=== PATIENT | female | born 1995 | race Caucasian/White ===

== ENCOUNTER 2018-01-28 18:08 | Emergency (ER) | payer BC, SELFPAY ==
[2018-01-28 18:13] VITALS: BP 128/80; PULSE 78; RESP 16; TEMP 36.9; O2SAT 97
--- NOTE | 2018-01-28 18:24 | ED.GENADUL ---
Disposition Clinical Impression: Dental infection Disposition: HOME Instructions: Dental Abscess (ED) Additional Instructions: These take antibiotic as prescribed. Be sure to complete the full course. Please take ibuprofen 600 mg by mouth every 6-8 hours as needed for pain for the next few days. Please follow-up with your dentist. Call tomorrow. Return to the emergency department immediately for any worsening or new concerning symptoms. Prescriptions: Penicillin V Potassium 500 mg PO QID PRN PRN #27 tablet PRN Reason: Referrals: Mikala Bernal [Primary Care Provider] - Medical Decision Making - Medical Decision Making 22-year-old female here with dental pain and infection. Concern for infection along gumline tooth #17 versus impacted wisdom tooth left lower. No indication for incision and drainage. Plan to treat with penicillin and have her follow-up with her dentist. Patient understands importance of timely follow-up and will be calling her dentist tomorrow. Patient is agreeable to periapical dental block. Patient provides verbal consent. History of Present Illness - General Chief complaint: DentalOral Stated complaint: INFECTION IN MOUTH Time Seen by Provider: 01/28/18 18:08 Source: patient, RN notes reviewed Mode of arrival: ambulatory Limitations: no limitations - History of Present Illness Initial comments: 22-year-old female presents with chief complaint of dental pain. Patient notes worsening of persistent left lower molar dental pain over the past 4 days. Pain is severe. Feels like an ache in her tooth. Constant. She notes associated swelling in the area of her face. No fever. Patient has had similar dental infection the past required antibiotics. - Related Data Methylphenidate HCl [Ritalin] 10 mg PO TID #40 tab-cap 12/13/17 Penicillin V Potassium 500 mg PO QID PRN PRN #27 tablet 01/28/18 Allergies Allergy/AdvReac Type Severity Reaction Status Date / Time sulfamethoxazole AdvReac Severe Skin Rash Unverified 01/28/18 18:24 [From Bactrim] trimethoprim [From Bactrim] AdvReac Severe Skin Rash Unverified 01/28/18 18:24 amitriptyline AdvReac suicidal Verified 01/28/18 18:24 ideation Review of Systems Constitutional: denies: fever ENT: as per HPI Past Medical History - Past Medical History Dental infection Surgical history: no surgical history - Social History Smoking status: never smoker General Exam - General Limitations: no limitations General appearance: alert, in no apparent distress - Eye Eye exam: Absent: scleral icterus, conjunctival injection - ENT ENT exam: Present: mucous membranes moist, other (Some redundant overlapping inflamed gum posterior left lower molar, tooth #17, tender gumline adjacent to tooth; no trismus; no appreciable facial swelling; posterior oropharynx without swelling or erythema, uvula midline) - Neck Neck exam: Absent: lymphadenopathy - Respiratory Respiratory exam: Present: normal lung sounds bilaterally - Cardiovascular Cardiovascular Exam: Present: regular rate, normal rhythm, normal heart sounds - Neurological Exam Neurological exam: Present: alert. Absent: altered - Psychiatric Psychiatric exam: Present: normal affect - Skin Skin exam: Present: warm, dry, intact Procedures - Nerve Block Consent Obtained: Verbal consent Time Out Performed: Yes Local Anesthetic Used: Marcaine 0.5% Side: left Intraoral Nerve Block: other (periapical) Procedure Successful: Yes Complications: none Patient Tolerated Procedure: well
[2018-01-28] MEDS: Penicillin V POTASSIUM 500 MG TAB PO ×2 (18:31)
[2018-01-28] MEDS: Benzocaine 20% 60 ML CAN TP (18:33)
[2018-01-28] MEDS: Bupivacaine 0.5% Pres-Free 30 ML VIAL IJ (18:33)
== END 2018-01-28 18:57 | disposition home or self-care (01) ==
PROVIDERS: Emergency Provider Student in an Organized Health Care Education/Training Program; PCP Family Medicine
DX: K04.7 Periapical abscess without sinus (principal); R68.84 Jaw pain; R22.0 Localized swelling, mass and lump, head
CPT/HCPCS: 64402; 99283

== ENCOUNTER 2020-02-16 16:02 | Emergency (ER) | payer BC, SELFPAY ==
[2020-02-16 16:09] VITALS: BP 147/87; PULSE 110; RESP 16; TEMP 36.6; O2SAT 98
--- NOTE | 2020-02-16 16:10 | ED.GENADUL_ITS ---
Discharge Plan Disposition Patient Disposition: HOME Condition: Fair Discharge Details Clinical Impression: Depression Primary Care Provider: Dory Cavazos ED Provider: Heather Payan Home Meds and New Rx's Prescriptions: Continued escitalopram oxalate [Lexapro] 10 mg Tablet 10 mg PO DAILY RF: 0 Discharge Instructions Instructions: Depression (ED) Additional Instructions: Continue usual medications Follow-up with mental health tomorrow as planned Return sooner for new or worsening symptoms Referrals: Dory Cavazos [Primary Care Provider] - Medical Decision Making Patient presents with symptoms of depression anxiety and suicidal ideation worsened since she stopped taking her Lexapro. She states she was started on that for the symptoms and they did improve after about 3 weeks of taking the medicine after being stable on it she decided she did not need it any longer and stopped taking it. Her symptoms now have returned and she is feeling suicidal with no specific plan she started retaking the Lexapro 4 days ago but symptoms have not improved. Medically she has been stable routine surveillance labs were obtained and are unremarkable urine drug screen is positive for cocaine, which she did not admit to. She is medically clear and ready for psychiatric evaluation mental health has been consulted and pending. She is given hydroxyzine 50 mg p.o. for her symptoms of anxiety. Mental health evaluation completed plan is to discharge with outpatient follow- up she was advised to return sooner for new or worsening symptoms Medical Records Medical records reviewed: Yes I reviewed the patient's medical records. Lab Data Lab results narrative: Laboratory Tests Range/Units 02/16/20 02/16/20 02/16/20 16:38 16:38 16:53 WBC (4.4-10.8) 10^3/uL RBC (3.93-5.22) 10^6/uL Hgb (11.2-15.7) g/dL Hct (36.0-46.0) % MCV (80-95) fL MCH (27.0-33.0) pg MCHC (32.0-36.0) % RDW (11.7-14.6) % Plt Count (130-400) 10^3/uL MPV (8.0-11.0) fL Immature Gran % Neutrophils % Lymphocytes % Monocytes % Eosinophils % Basophils % Nucleated RBC % % Absolute Neutrophils (1.2-6.7) 10^3/uL Absolute Lymphocytes (1.2-3.4) 10^3/uL Absolute Monocytes (0.1-0.8) 10^3/uL Absolute Eosinophils (0.0-0.7) 10^3/uL Absolute Basophils (0.0-0.2) 10^3/uL Sodium (136-145) mmol/L 139 Potassium (3.5-5.1) mmol/L 3.7 Chloride (98-107) mmol/L 103 Carbon Dioxide (21.0-32.0) mmol/L 25.0 Anion Gap (3-11) mmol/L 11.0 BUN (7-18) mg/dL 11 Creatinine (0.55-1.02) mg/dL 0.75 Estimated GFR/1.73 m2 (mL/min/1.73m2) >= 60.00 Glucose (74-106) mg/dL 95 Calcium (8.5-10.1) mg/dL 9.2 Total Bilirubin (0.2-1.0) mg/dL 0.8 AST (15-37) U/L 19 ALT (14-59) U/L 23 Alkaline Phosphatase (46-116) U/L 67 Total Protein (6.4-8.2) g/dL 7.9 Albumin (3.4-5.0) g/dL 4.3 TSH (0.36-3.74) uIU/mL 1.26 Urine Color (Yellow) Yellow Urine Clarity (Clear) Clear Urine pH (5-8) 7.5 Ur Specific [place] (1.005-1.025) 1.020 Urine Protein (Negative) mg/dL Negative Urine Ketones (Negative) mg/dL 15 H Urine Blood (Negative) Negative Urine Nitrite (Negative) Negative Urine Bilirubin (Negative) Negative Urine Urobilinogen (Up TO 0.2) EU/dL 0.2 Ur Leukocyte Esterase (Negative) Negative Urine Glucose (Negative) mg/dL Negative Salicylates (2.8-20.0) mg/dL Urine Opiates Screen (Negative) Negative Urine Methadone Screen (Negative) Negative Acetaminophen (10-30) ug/mL Ur Barbiturates Screen (Negative) Negative Ur Tricyclics Screen (Negative) Negative Ur Amphetamines Screen (Negative) Negative U Benzodiazepines Scrn (Negative) Negative Urine Cocaine Screen (Negative) Positive A Ur THC Screen (Negative) Negative Ethyl Alcohol (<3) mg/dL 3.7 Range/Units 02/16/20 02/16/20 16:53 16:53 WBC (4.4-10.8) 10^3/uL 9.70 RBC (3.93-5.22) 10^6/uL 4.52 Hgb (11.2-15.7) g/dL 14.5 Hct (36.0-46.0) % 42.8 MCV (80-95) fL 94.7 MCH (27.0-33.0) pg 32.1 MCHC (32.0-36.0) % 33.9 RDW (11.7-14.6) % 11.9 Plt Count (130-400) 10^3/uL 290 MPV (8.0-11.0) fL 9.0 Immature Gran % 0.3 Neutrophils % 77.6 Lymphocytes % 15.5 Monocytes % 6.1 Eosinophils % 0.1 Basophils % 0.4 Nucleated RBC % % 0 Absolute Neutrophils (1.2-6.7) 10^3/uL 7.53 H Absolute Lymphocytes (1.2-3.4) 10^3/uL 1.50 Absolute Monocytes (0.1-0.8) 10^3/uL 0.59 Absolute Eosinophils (0.0-0.7) 10^3/uL 0.01 Absolute Basophils (0.0-0.2) 10^3/uL 0.04 Sodium (136-145) mmol/L Potassium (3.5-5.1) mmol/L Chloride (98-107) mmol/L Carbon Dioxide (21.0-32.0) mmol/L Anion Gap (3-11) mmol/L BUN (7-18) mg/dL Creatinine (0.55-1.02) mg/dL Estimated GFR/1.73 m2 (mL/min/1.73m2) Glucose (74-106) mg/dL Calcium (8.5-10.1) mg/dL Total Bilirubin (0.2-1.0) mg/dL AST (15-37) U/L ALT (14-59) U/L Alkaline Phosphatase (46-116) U/L Total Protein (6.4-8.2) g/dL Albumin (3.4-5.0) g/dL TSH (0.36-3.74) uIU/mL Urine Color (Yellow) Urine Clarity (Clear) Urine pH (5-8) Ur Specific [place] (1.005-1.025) Urine Protein (Negative) mg/dL Urine Ketones (Negative) mg/dL Urine Blood (Negative) Urine Nitrite (Negative) Urine Bilirubin (Negative) Urine Urobilinogen (Up TO 0.2) EU/dL Ur Leukocyte Esterase (Negative) Urine Glucose (Negative) mg/dL Salicylates (2.8-20.0) mg/dL < 2.8 Urine Opiates Screen (Negative) Urine Methadone Screen (Negative) Acetaminophen (10-30) ug/mL < 2 Ur Barbiturates Screen (Negative) Ur Tricyclics Screen (Negative) Ur Amphetamines Screen (Negative) U Benzodiazepines Scrn (Negative) Urine Cocaine Screen (Negative) Ur THC Screen (Negative) Ethyl Alcohol (<3) mg/dL HPI General Mode of arrival: ambulatory . Date/Time Provider Initiated Documentation: 02/16/20 16:08 . Limitations to Documentation: no limitations . Information obtained by: patient . HPI Narrative: This is a 25-year-old female patient with a past medical history significant for depression who is being treated with escitalopram, which she stopped taking several weeks ago because she said her symptoms had improved she now is voicing depression anxiety and suicidal ideation. She denies any specific plan but states she feels she cannot go on this way. She noted that her symptoms were worsening so did resume taking her medication 4 days ago. She states that she feels that she cannot manage her symptoms and presented to the emergency department for evaluation. Medically she has been stable she denies ever any fevers chills shortness of breath or recent illness. She states she has nausea due to her anxiety and has had poor p.o. intake Related Data Home Medications Medication Instructions Recorded Confirmed escitalopram oxalate [Lexapro] 10 mg PO DAILY 02/16/20 02/16/20 Allergies Allergy/AdvReac Type Severity Reaction Status Date / Time sulfamethoxazole AdvReac Severe Skin Rash Unverified 02/16/20 16:15 [From Bactrim] trimethoprim [From Bactrim] AdvReac Severe Skin Rash Unverified 02/16/20 16:15 amitriptyline AdvReac suicidal Verified 02/16/20 16:15 ideation General Stated Complaint: PsychEval ANA ROSA: 2 Review of Systems All systems reviewed & are unremarkable except as noted in HPI and below [facility] Medical History (Updated 02/16/20 @ 20:07 by Heather Payan NP) Anxiety Social History Smoking/Tobacco Use Status: Never Alcohol Intake: current Alcohol Intake frequency: a few times a month Drug use: Occasionally Substance use type: marijuana Do you feel safe at home: Yes Do you feel safe in your relationship?: Yes Exam Const General: cooperative, comfortable and no acute distress Nutritional Appearance: overweight Orientation: alert, awake and oriented x3 HENMT Head: normal to inspection, normocephalic and atraumatic Mouth: oral mucosae normal Resp Effort & Inspection: normal respiratory effort Auscultation: clear to auscultation bilaterally Cardio Rate: regular rate Rhythm: regular rhythm GI Inspection: normal to inspection Palpation: soft Auscultation: normal bowel sounds Skin General skin exam: no rashes or lesions noted Neuro General: patient alert, patient awake and patient oriented x3 Cranial Nerves: CN's II-XI intact bilaterally Extrem General: normal to inspection and full ROM Psych Appearance: grossly normal Mental Status: mental status grossly normal Speech and Movement: speech and movement normal Mood: congruent mood Affect: blunted Attitude: cooperative Thought Process: normal Thought Content: phobias and suicidality Insight: fair Judgment: fair
[2020-02-16 16:53] LABS: Bilirubin Negative (Negative); Blood Negative (Negative); Clarity Clear (Clear); Glucose Negative (Negative); Ketones 15 mg/dL (Negative); Leukocyte Esterase Negative (Negative); Nitrite Negative (Negative); Urobilinogen 0.2 EU/dL (Up TO 0.2); pH 7.5 (5-8)
[2020-02-16 17:03] LABS: Abs Immature Grans 0.03 10^3/uL (0.0-0.06); Absolute Basophil Count 0.04 10^3/uL (0.0-0.2); Absolute Eosinophil Count 0.01 10^3/uL (0.0-0.7); Absolute Monocyte Count 0.59 10^3/uL (0.1-0.8); Absolute Neutrophil Count 7.53 10^3/uL (1.2-6.7); Basophils % 0.4; Eosinophils % 0.1; HCT 42.8 % (36.0-46.0); HGB 14.5 g/dL (11.2-15.7); Immature Grans % 0.3; Lymphocytes % 15.5; MCH 32.1 pg (27.0-33.0); MCHC 33.9 % (32.0-36.0); MCV 94.7 fL (80-95); Monocytes % 6.1; Neutrophils % 77.6; Nucleated RBC 0 %; Platelet Count 290 10^3/uL (130-400); RBC 4.52 10^6/uL (3.93-5.22); RDW 11.9 % (11.7-14.6); RDW-SD 41.4 fL
[2020-02-16 17:06] LABS: *AMPHETAMINES SCREEN URINE Negative (Negative); *BARBITURATES SCREEN URINE Negative (Negative); *BENZODIAZEPINES SCREEN URINE Negative (Negative); Cannabinoids THC Negative (Negative); Cocaine Screen,Urine POSITIVE (Negative); METHADONE URINE SCREEN Negative (Negative); OPIATES URINE SCREEN Negative (Negative)
[2020-02-16 17:10] LABS: Tricyclic Antidepressants Negative (Negative)
[2020-02-16 17:36] LABS: ALT 23 U/L (14-59); AST 19 U/L (15-37); Albumin 4.3 g/dL (3.4-5.0); Alkaline Phosphatase 67 U/L (46-116); BUN 11 mg/dL (7-18); Bilirubin, Total 0.8 mg/dL (0.2-1.0); CREATININE 0.75 mg/dL (0.55-1.02); Calcium 9.2 mg/dL (8.5-10.1); Chloride 103 mmol/L (98-107); ETHANOL BLOOD 3.7 mg/dL (<3); Glucose 95 mg/dL (74-106); Potassium 3.7 mmol/L (3.5-5.1); Sodium 139 mmol/L (136-145); TSH 1.26 uIU/mL (0.36-3.74); Total Protein 7.9 g/dL (6.4-8.2)
[2020-02-16 17:49] LABS: Salicylate < 2.8 mg/dL (2.8-20.0)
[2020-02-16 17:54] LABS: Acetaminophen < 2 ug/mL (10-30)
[2020-02-16] MEDS: hydrOXYzine HCL 50 MG TAB PO (18:15)
--- NOTE | 2020-02-16 19:11 | NUR.NOTE ---
Nursing Note: This nurse spoke with mental health via video conference who stated patient was ok to be discharged with outpatient referrals. This nurse asked mental health if there was a safety plan in place and mental health stated they would check in with patient tomorrow and that referrals would be placed. See [employer] noted for more info.
--- NOTE | 2020-02-16 19:43 | PDOC.MHCN ---
Date of service: 02/16/20 Time of Service: 19:43 Mental Health Crisis Note Presenting Issue How did you arrive at the ED and why did you come: Client arrived at ED for anxiety attack, as patient described it. Client sates that she has been having really bad anxiety the past 4 days which is effecting her day to day activities. Precipitating Factors Client states that she sometimes has SI, but denies a plan and states that she would never hurt herself. Client denies HI. Disposition BEHAVIOR: Client is sitting on hospital bed in standard hospital paper attire when mental health clinician arrived via zoom. Client is cooperative with mental health clinician and answers all questions that are asked of her. Client asks appropriate questions of mental health clinician throughout the assessment. EYE CONTACT: Clients eye contact is distorted making eye contact with mental health clinician at times and other times looking around the room. MOOD: Client appears to be depressed and is tearful at times when interacting with mental health clinician during assessment. AFFECT: Flat Affect APPETITE: Client states that she has not been eating adequately. Client states that she had 2 pieces of pizza for lunch yesterday, but has not eaten anything since then. SLEEP(trouble falling/staying asleep: Client states that she cannot sleep or when she does sleep she has very vivid dreams that wake her up out of a sleep. These dreams are fears, but not realistic client states. Plan [facility] intake paperwork complete. Client went home on a safety plan with a check-in phone call tomorrow. Mental health clinician will do in house referrals for client. Signature Clinician's Name/Title: Zarina Sewell, [facility] Emergency Mental Health Clinician.
== END 2020-02-16 20:20 | disposition home or self-care (01) ==
PROVIDERS: Emergency Provider Nurse Practitioner Acute Care; PCP Nurse Practitioner Family
DX: F41.8 Other specified anxiety disorders (principal); R45.851 Suicidal ideations; Z91.128 Patient's intentional underdosing of medication regimen for other reason; T43.226A Underdosing of selective serotonin reuptake inhibitors, initial encounter; F14.10 Cocaine abuse, uncomplicated
CPT/HCPCS: 36415; 80053; 80307; 81025; 99283; 80320; 80329; 81003; 84443; 85025; J3490

== ENCOUNTER 2020-06-13 23:48 | Emergency (ER) | payer BC, SELFPAY ==
[2020-06-13 23:50] VITALS: BP 143/96; PULSE 121; RESP 18; TEMP 36.6; O2SAT 97
--- NOTE | 2020-06-13 23:54 | ED.GENADUL_ITS ---
Discharge Plan Disposition Patient Disposition: HOME Condition: Good Discharge Details Clinical Impression: Laceration of scalp, Alcohol intoxication Primary Care Provider: Dory Cavazos ED Provider: Jeyson Fine Meds and New Rx's Prescriptions: Continued escitalopram oxalate [Lexapro] 10 mg Tablet 10 mg PO DAILY RF: 0 alprazolam [Xanax] 0.5 mg Tablet 0.5 mg PO DAILY PRNRF: 0 Discharge Instructions Instructions: Head Injury (ED), Alcohol Intoxication (ED), Head Laceration (ED) Additional Instructions: CT scan of your head and cervical spine are negative for traumatic injury. Tetanus was updated tonight. Sam will need to come out in 10 days. You may return here for staple removal. Be careful when washing your hair. Watch for signs of infection. Return to ED if any problems. Referrals: [facility] [Provider Group] Medical Decision Making Patient with scalp laceration status post fall at home while intoxicated. Awake and alert here but quite intoxicated. GCS of 15. Nonfocal. Very anxious. No complaint other than scalp laceration. Wound irrigated and found to be quite deep. Lidocaine with epi given for anesthesia and hemostasis. Galea noted to have small laceration. This was closed with one 5-0 Vicryl suture. Scalp then closed with 4 sam. Due to the intoxication elected to scan the patient's head and cervical spine before releasing into the care of her mother. CT scan of the head and cervical spine negative for traumatic injury. Tetanus updated. Patient discharged into the care of her mother who will watch her for the rest of tonight. Return to ED in 10 days for staple removal. Return sooner if any evidence of infection or other problems. HPI General Mode of arrival: ambulatory . Date/Time Provider Initiated Documentation: 06/13/20 23:51 . Limitations to Documentation: no limitations . Information obtained by: patient and RN notes reviewed . HPI Narrative: Patient is brought into ED by her mother after patient fell while drinking alcohol tonight. She is pretty intoxicated. She fell going up her stairs into her house. She is unsure whether she had loss of consciousness or not. Sounds like she just fell, noticed bleeding and immediately called her mother. She was ambulatory in on her own. She has history of anxiety and is very anxious currently. Is not complaining of pain anywhere other than her head. Did not fall down a flight of stairs. More like fell going up the stairs and struck her head on something. Related Data Home Medications Medication Instructions Recorded Confirmed escitalopram oxalate [Lexapro] 10 mg PO DAILY 02/16/20 06/14/20 alprazolam [Xanax] 0.5 mg PO DAILY PRN 06/14/20 06/14/20 Allergies Allergy/AdvReac Type Severity Reaction Status Date / Time sulfamethoxazole AdvReac Severe Skin Rash Unverified 06/14/20 00:51 [From Bactrim] trimethoprim [From Bactrim] AdvReac Severe Skin Rash Unverified 06/14/20 00:51 amitriptyline AdvReac suicidal Verified 06/14/20 00:51 ideation General ANA ROSA: 2 Review of Systems Unobtainable due to mental status (Intoxicated) [facility] Medical History Anxiety Surgical History No significant past surgical history Social History Smoking/Tobacco Use Status: Never Smoking risk assessment performed?: Yes Alcohol Intake: current Alcohol Intake frequency: a few times a week Alcohol type: hard liquor Drug use: Occasionally Substance use type: marijuana Do you feel safe at home: Yes Do you feel safe in your relationship?: Yes Exam Narrative Exam Narrative: Const: WDWN female in NAD. HEENT: NC. 2cm scalp lac to left parietal area. Normal facial exam. Eyes: PERRL and EOMI. Normal conjunctiva and sclera. Neck: Supple. Trachea midline. Lungs: Normal respiratory effort. Lungs are clear. Cor: RRR without murmur/gallop. Good radial pulses. GI: Soft. NT/ND. Neuro: A+O x 3. Intoxicated, slurred speech, unsteady gait. Cranial nerves II - XII grossly intact. No gross motor or sensory deficit. Ext: No deformity or tenderness. Skin: Warm and dry. Procedures Laceration Laceration 1: Site: scalp Side (If applicable): left Size (cm): 2 Description: linear Local Anesthetic: Lidocaine 1% and with Epi Amount of anesthesia used (mL): 6 Pre-repair: wound explored and irrigated extensively Skin layer closed with: other (sam) Muscle layer closed with: vicryl Size: 5-0 Number of sutures: 1 Technique: simple, interrupted
--- NOTE | 2020-06-14 00:30 | DI.CT_ITS ---
EXAM: CT HEAD CERVICAL SPINE WO CLINICAL HISTORY: trauma. TECHNIQUE: Imaging Protocol: Axial computed tomography images with coronal and sagittal reformatted images were created and reviewed COMPARISON: No exams were available for comparison FINDINGS: Head CT Ventricles and Extra axial spaces: Normal in size and morphology for the patient's age. Hemorrhage: None. Cerebral parenchyma: Normal. Midline shift: None. Brainstem/Cerebellum: Normal. Calvarium: Normal. Visualized Paranasal sinuses/Mastoids: Clear. Soft tissues: Skin mohit are noted over an area of left frontal parietal scalp hematoma. Cervical Spine CT BONES: Vertebral body heights are maintained. Alignment is normal. There is no evidence of acute frac ture. . SOFT TISSUES: No paraspinal hematoma. The airway appears intact. No pneumothorax is seen at the lung apices. IMPRESSION: Head CT: Scalp hematoma. No acute intracranial abnormality. C-spine CT: Within normal limits.. RADIATION DOSE DELIVERED: LINK-TO-SR Total DLP DATA REPOSITORY: All CT scans at this facility are submitted to the National Radiology Data Registry (NRDR) Dose Index Registry (DIR) with the [employer] (ACR). RADIATION OPTIMIZATION: All CT scans at this facility use at least one of these dose optimization te chniques: automated exposure control; mA and/or kV adjustment per patient size (includes targeted exa ms where dose is matched to clinical indication); or iterative reconstruction.
--- NOTE | 2020-06-14 01:20 | DI.VRAD_ITS ---
PROCEDURE INFORMATION: Exam: CT Head Without Contrast Exam date and time: 06/14/2020 12:44 AM Age: 25 years old Clinical indication: Injury or trauma; Fall; Blunt trauma (contusions or hematomas) TECHNIQUE: Imaging protocol: Computed tomography of the head without contrast. COMPARISON: No relevant prior studies available. FINDINGS: Brain: Cerebral sulci show bilateral symmetry with no supratentorial mass or mass effect detected. Brainstem and cerebellum are normal in appearance. There is no evidence of acute intracranial hemorrhage. Cerebral ventricles: Ventricular and cisternal spaces are normal in size and configuration and there is no midline shift or hydrocephalus seen. Bones/joints: Bony calvarium and skull base are intact and no acute fractures are detected. Paranasal sinuses: Paranasal sinuses are clear throughout and their bony margins are intact at the levels imaged. Mastoid air cells: Normally pneumatized and clear bilaterally. Soft tissues: Small left frontoparietal scalp hematoma is identified with overlying skin mohit seen related to laceration closure and no subjacent fracture detected. IMPRESSION: 1. No evidence of intracranial hemorrhage or other acute intracranial process. 2. Left frontoparietal scalp hematoma and laceration closure as above. PROCEDURE INFORMATION: Exam: CT Cervical Spine Without Contrast Exam date and time: 06/14/2020 12:44 AM Age: 25 years old Clinical indication: Injury or trauma; Fall; Blunt trauma (contusions or hematomas) TECHNIQUE: Imaging protocol: Computed tomography images of the cervical spine without contrast. COMPARISON: No relevant prior studies available. FINDINGS: Bones/joints: Craniocervical and atlantoaxial articulations are preserved and the odontoid process appears intact. Vertebral body height is preserved throughout cervical levels with no acute fractures or dislocations detected. Posterior elements appear grossly intact throughout cervical levels. Discs/Spinal canal/Neural foramina: No significant disc bulges or protrusions seen. No severe spinal canal stenosis. No significant bony foraminal narrowing. Lungs: No pneumothorax or consolidation detected at the lung apices. Soft tissues: Unremarkable. IMPRESSION: No acute cervical fracture detected. Dictated and Authenticated by: Duglas Ferraro MD. Ordering:EDY Benítez MD
== END 2020-06-14 02:00 | disposition home or self-care (01) ==
PROVIDERS: Emergency Provider Emergency Medicine; PCP Nurse Practitioner Family
DX: S01.01XA Laceration without foreign body of scalp, initial encounter (principal); F10.120 Alcohol abuse with intoxication, uncomplicated; W10.8XXA Fall (on) (from) other stairs and steps, initial encounter
CPT/HCPCS: 12031; 81025; 90471; 70450; 72125

== ENCOUNTER 2020-06-24 07:14 | Emergency (ER) | payer BC, SELFPAY ==
[2020-06-24 07:18] VITALS: BP 130/78; PULSE 81; RESP 16; TEMP 36.8; O2SAT 98
--- NOTE | 2020-06-24 07:21 | W.ED.GENAD ---
Discharge Plan Disposition Patient Disposition: HOME Condition: Stable Discharge Details Clinical Impression: Encounter for removal of mohit Primary Care Provider: Dory Cavazos ED Provider: Chevy Brian Home Meds and New Rx's Prescriptions: Continued escitalopram oxalate [Lexapro] 10 mg Tablet 10 mg PO DAILY RF: 0 alprazolam [Xanax] 0.5 mg Tablet 0.5 mg PO DAILY PRNRF: 0 Discharge Instructions Additional Instructions: if you have worsening pain, fevers or yellow/white discharge from the wound return to the emergency department Medical Decision Making Pt seen on 06/23 after sustaining a laceration to the left scalp while intoxicated and had 4 mohit palced and is here for removal. Denies any symptoms. Wound on the left parietal scalp is well healed, no erythema swelling tenderness or discharge. Removed the 4 mohit without complications, will d/c home Differential Diagnosis Differential Diagnosis: laceration, staple removal HPI General Mode of arrival: ambulatory. Date/Time Provider Initiated Documentation: 06/24/20 07:15. Limitations to Documentation: no limitations. Information obtained by: patient. History of Present Illness 25 year old F presents to the emergency department with the chief complaint of staple removal, described as mild, Patient started experiencing this week(s) (1) and it has been constant. No relieving factors improve symptom(s), No exacerbating factors reported . Patient notes no other symptoms.. Related Data Home Medications Medication Instructions Recorded Confirmed escitalopram oxalate [Lexapro] 10 mg PO DAILY 02/16/20 06/24/20 alprazolam [Xanax] 0.5 mg PO DAILY PRN 06/14/20 06/24/20 Allergies Allergy/AdvReac Type Severity Reaction Status Date / Time sulfamethoxazole AdvReac Severe Skin Rash Unverified 06/24/20 07:21 [From Bactrim] trimethoprim [From Bactrim] AdvReac Severe Skin Rash Unverified 06/24/20 07:21 amitriptyline AdvReac suicidal Verified 06/24/20 07:21 ideation General ANA ROSA: 2 Review of Systems All systems reviewed & are unremarkable except as noted in HPI and below Constitutional Constitutional: Denies chills, Denies fever(s) and Denies weakness Cardiovascular Cardiovascular: Denies chest pain and Denies dyspnea Respiratory Respiratory: Denies dyspnea Gastrointestinal Gastrointestinal: Denies abdominal pain, Denies nausea and Denies vomiting Integumentary/Breasts Skin/Breast: Denies rash Neurologic Neurologic: Denies weakness [facility] Medical History Anxiety Surgical History No significant past surgical history Social History Smoking/Tobacco Use Status: Never Smoking risk assessment performed?: Yes Alcohol Intake: current Alcohol Intake frequency: a few times a week Alcohol type: hard liquor Drug use: Occasionally Substance use type: marijuana Do you feel safe at home: Yes Do you feel safe in your relationship?: Yes Exam Const General: no acute distress Orientation: alert HENMT Head: no palpable skull fracture Ears: external ears normal General nose exam: external nose normal Mouth: moist mucous membranes Eyes General: appearance normal, both eyes and all related structures Neck Neck: normal visual inspection Resp Effort & Inspection: normal respiratory effort and able to speak in complete sentences Cardio Rate: regular rate Skin General skin exam: no rashes or lesions noted Neuro General: patient alert and patient oriented x3 Extrem General: normal to inspection Psych Mental Status: mental status grossly normal
== END 2020-06-24 07:28 | disposition home or self-care (01) ==
LOC: ER 07:33
PROVIDERS: Emergency Provider Emergency Medicine; PCP Nurse Practitioner Family
DX: S01.01XD Laceration without foreign body of scalp, subsequent encounter (principal); W10.8XXD Fall (on) (from) other stairs and steps, subsequent encounter; Z48.02 Encounter for removal of sutures

== ENCOUNTER 2020-12-23 21:29 | Emergency (ER) | payer BC, SELFPAY ==
[2020-12-23] VITALS (24 sets, daily range): BP systolic 91–119; BP diastolic 58–83; PULSE 90–122; RESP 15–30; TEMP 37.4; O2SAT 84–98
--- NOTE | 2020-12-23 21:58 | ED.GENADUL_ITS ---
Discharge Plan Disposition Patient Disposition: HOME Condition: Stable Discharge Details Clinical Impression: ETOH abuse, Benzodiazepine abuse Primary Care Provider: Dory Cavazos ED Provider: Jonny Lee Home Meds and New Rx's Prescriptions: Continued escitalopram oxalate [Lexapro] 10 mg Tablet 10 mg PO DAILY RF: 0 zaleplon 10 mg capsule 10 mg PO HS RF: 0 alprazolam [Xanax] 0.5 mg Tablet 0.5 mg PO DAILY PRNRF: 0 Discharge Instructions Additional Instructions: Please avoid using alcohol and benzodiazepines together. If you notice any worsening of your symptoms, or any new symptoms such as vomiting, diarrhea, fever, chills, shortness of breath, chest pain, numbness, weakness, or fainting , please return immediately to the emergency department for reevaluation. Please follow up with your primary care provider as soon as possible for reassessment and reevaluation. As always, it was a pleasure participating in your medical care today. Referrals: Dory Cavazos [Primary Care Provider] - Discharge Data Discharge Date/Time-TO BE ENTERED AT DEPARTURE: 12/24/20 00:12 Medical Decision Making <Nato Kelly MD - Last Filed: 12/27/20 16:54> 2215? 25-year-old female here approximately 1 hour after supposedly ingesting 8 mg of Xanax and consuming alcoholic beverages. History and review of systems unreliable at this point given the altered mental status presumed secondary to intoxication. Airway is intact. No suicidal ideation. We will obtain medical screening labs including LFTs, salicylates and acetaminophen level as well as urine drug screen. Patient will need to be observed for a few hours until sober and ensure no respiratory depression. <Jonny Lee DO - Last Filed: 12/24/20 00:29> Case is signed out to me by my colleague Dr. Nato Kelly, please refer to his HPI, physical exam assessment and plan. At the time of signout we are pending reassessment for improved mental status. Reassess the patient at 12:12 and the patient is doing much better. She is awake, she is alert, she feels well and she is notably adamant about going home. She has demonstrated no signs of hypoxemia or respiratory distress whatsoever. She denies any homicidal or suicidal ideation. Mother is at bedside. I had a long discussion with both the mother and the patient, and discussed the importance of continued close monitoring. I gave the option of continued monitoring here in the ED and made clear that this would be the ideal path forward, however after long discussion regarding the risks and benefits, the patient and the mother have elected to go home understanding the potential risks benefits and consequences, the worst of which being less of life. However clinically at this time the patient appears notably well, and is demonstrating significant improvement compared to the initial assessment upon her arrival. Discussed the importance of continued bedside observation at home. Mother feels very comfortable with this. I have extensively reviewed the treatment plan and discharge instructions with the patient and their family. I have addressed all patient concerns at this time. The patient and family was made aware of what symptoms to monitor for that would warrant a return to the emergency department. Discussed the plan with the patient and family, they demonstrate verbal understanding and agreement with our assessment and plan at this time. The documentation in this chart was dictated using [employer] dictation software. Please excuse any dictation errors. HPI <Nato Kelly MD - Last Filed: 12/27/20 16:54> General Mode of arrival: ambulatory . Date/Time Provider Initiated Documentation: 12/23/20 21:43 . Limitations to Documentation: no limitations . Information obtained by: patient and family (mother) . HPI Narrative: 25-year-old female with history of anxiety disorder, presents with chief complaint substance use. Patient states she was consuming alcohol today and decided she wanted to go to sleep and took #4 Xanax 2 mg tablets approximately 1 hour prior to arrival. Patient denies suicidal ideation. She notes that this was not a suicidal attempt. She has had a she notes she has had a lot of anxiety recently and just wanted to get some sleep. She states that today she started to consume alcoholic beverages around 3-4 PM. States that she has consumed approximately 4 vodka mixed drinks. Patient denies other ingestion. Patient states she realized she probably took too much Xanax and was concerned that this might cause her harm and she contacted her mother who brought her here to the emergency department. Mom is here with the patient and does not have concerns for suicidality. Related Data Home Medications Medication Instructions Recorded Confirmed escitalopram oxalate [Lexapro] 10 mg PO DAILY 02/16/20 12/23/20 alprazolam [Xanax] 0.5 mg PO DAILY PRN 06/14/20 12/23/20 zaleplon 10 mg PO HS 12/23/20 12/23/20 Allergies Allergy/AdvReac Type Severity Reaction Status Date / Time sulfamethoxazole AdvReac Severe Skin Rash Unverified 12/23/20 21:40 [From Bactrim] trimethoprim [From Bactrim] AdvReac Severe Skin Rash Unverified 12/23/20 21:40 amitriptyline AdvReac suicidal Verified 12/23/20 21:40 ideation General Stated Complaint: OD/Poison ANA ROSA: 3 Review of Systems <Nato Kelly MD - Last Filed: 12/27/20 16:54> All systems reviewed & are unremarkable except as noted in HPI and below Constitutional Constitutional: Denies fever(s) Gastrointestinal Gastrointestinal: Denies vomiting Psychiatric Psychiatric: Reports anxiety and Denies suicidal ideation PFSH <Nato Kelly MD - Last Filed: 12/27/20 16:54> Medical History Anxiety Surgical History No significant past surgical history Social History Smoking/Tobacco Use Status: Never Smoking risk assessment performed?: Yes Alcohol Intake: current Alcohol Intake frequency: a few times a week Alcohol type: hard liquor Drug use: Occasionally Substance use type: marijuana Do you feel safe at home: Yes Do you feel safe in your relationship?: Yes Exam <Nato Kelly MD - Last Filed: 12/27/20 16:54> Const General: cooperative and no acute distress HENMT Head: atraumatic Mouth: moist mucous membranes Eyes Conjunctivae: normal conjunctivae Sclera: normal sclerae Neck Neck: trachea midline and supple Resp Auscultation: clear to auscultation bilaterally, no rales, no rhonchi and no wheezes Cardio Rate: tachycardic Rhythm: regular rhythm GI Palpation: soft, not firm, no guarding, no masses, not rigid and nontender Skin General skin exam: no rashes or lesions noted Neuro General: patient alert, patient awake, patient oriented x3 and tone normal Extrem General: no edema Psych Appearance: grossly normal Mental Status: mental status grossly normal Speech and Movement: slurred speech Attitude: cooperative Thought Content: suicidality Course <Nato Kelly MD - Last Filed: 12/27/20 16:54> Vital Signs Vital signs: Vital Signs Temperature 37.4 C 12/23/20 21:33 Pulse 122 H 12/23/20 21:33 Respiratory Rate 16 12/23/20 21:33 Blood Pressure 115/72 12/23/20 21:33 Pulse Oximetry 98 12/23/20 21:33 Temperature 37.4 C 12/23/20 21:33 Temperature Source Skin 12/23/20 21:33 Pulse 122 H 12/23/20 21:33 Respiratory Rate 18 12/23/20 21:41 Respiratory Effort Non-Labored 12/23/20 21:41 Respiratory Depth Normal 12/23/20 21:41 Respiratory Pattern Normal 12/23/20 21:41 Blood Pressure 115/72 12/23/20 21:33 Blood Pressure Position Sitting 12/23/20 21:33 Pulse Oximetry 98 12/23/20 21:33 Oxygen Delivery Method Room Air 12/23/20 21:33 Oxygen Flow Rate 0 12/23/20 21:33 Pain Level 0 12/23/20 21:33 Sign Out <Nato Kelly MD - Last Filed: 12/27/20 16:54> Sign Out Data: Sign Out Comment: reassess for clinical sobriety and benzo effects Last updated by Nato Kelly MD at 12/23/20 23:09
[2020-12-23 22:12] LABS: Abs Immature Grans 0.02 10^3/uL (0.0-0.06); Absolute Basophil Count 0.04 10^3/uL (0.0-0.2); Absolute Eosinophil Count 0.01 10^3/uL (0.0-0.7); Absolute Lymphocyte Count 2.87 10^3/uL (1.2-3.4); Absolute Monocyte Count 0.54 10^3/uL (0.1-0.8); Basophils % 0.6; Eosinophils % 0.1; HGB 15.6 g/dL (11.2-15.7); Immature Grans % 0.3; Lymphocytes % 41.7; MCH 30.6 pg (27.0-33.0); MCHC 33.9 % (32.0-36.0); MCV 90.4 fL (80-95); MPV 9.1 fL (8.0-11.0); Monocytes % 7.8; Neutrophils % 49.5; Nucleated RBC 0 %; Platelet Count 325 10^3/uL (130-400); RBC 5.09 10^6/uL (3.93-5.22); RDW 12.3 % (11.7-14.6); RDW-SD 40.6 fL; WBC 6.88 10^3/uL (4.4-10.8)
[2020-12-23] MEDS: Lactated Ringers 1,000 ML 1000 ML IV (22:15)
[2020-12-23 22:28] LABS: ALT 27 U/L (14-59); AST 17 U/L (15-37); Albumin 4.4 g/dL (3.4-5.0); Alkaline Phosphatase 68 U/L (46-116); Anion Gap 8.8 mmol/L (3-11); BUN 11 mg/dL (7-18); Bilirubin, Total 0.3 mg/dL (0.2-1.0); CO2 27.2 mmol/L (21.0-32.0); CREATININE 0.9 mg/dL (0.55-1.02); Calcium 9.1 mg/dL (8.5-10.1); Chloride 108 mmol/L (98-107); ETHANOL BLOOD 243.1 mg/dL (<3); Glucose 94 mg/dL (74-106); Potassium 3.8 mmol/L (3.5-5.1); Sodium 144 mmol/L (136-145); Total Protein 8.4 g/dL (6.4-8.2)
[2020-12-23 22:32] LABS: Salicylate < 2.8 mg/dL (<2.8)
[2020-12-23 22:33] LABS: Acetaminophen < 2 ug/mL (10-30)
[2020-12-23 23:01] LABS: *AMPHETAMINES SCREEN URINE Negative (Negative); *BARBITURATES SCREEN URINE Negative (Negative); *BENZODIAZEPINES SCREEN URINE Negative (Negative); Cannabinoids THC Negative (Negative); Cocaine Screen,Urine Negative (Negative); METHADONE URINE SCREEN Negative (Negative); OPIATES URINE SCREEN Negative (Negative)
[2020-12-23 23:02] LABS: Tricyclic Antidepressants Negative (Negative)
[2020-12-24] VITALS: PULSE 117; RESP 14
== END 2020-12-24 00:12 | disposition home or self-care (01) ==
PROVIDERS: Student in an Organized Health Care Education/Training Program; Emergency Provider Student in an Organized Health Care Education/Training Program; PCP Nurse Practitioner Family
DX: F13.10 Sedative, hypnotic or anxiolytic abuse, uncomplicated (principal); F10.10 Alcohol abuse, uncomplicated
CPT/HCPCS: 80053; 80307; 81025; 96360; 96361; 99285; 80320; 80329; 85025; 99284

== ENCOUNTER 2022-01-28 19:00 | Outpatient (REF) | payer BC, SELFPAY ==
[2022-01-31 15:35] LABS: Chlamydia Result Negative (Negative); GC Result Negative (Negative)
== END 2022-01-28 19:01 | disposition home or self-care (01) ==
LOC: LBN 19:00
PROVIDERS: PCP Nurse Practitioner Family; Visit Provider Physician Assistant
DX: N76.0 Acute vaginitis (principal); N39.0 Urinary tract infection, site not specified; A64 Unspecified sexually transmitted disease
CPT/HCPCS: 87491; 87591; 87086; 87480; 87510; 87660

== ENCOUNTER 2022-06-04 09:36 | Emergency (ER) | payer SELFPAY ==
[2022-06-04 09:38] VITALS: BP 139/93; PULSE 97; RESP 18; TEMP 37; O2SAT 96
--- NOTE | 2022-06-04 09:58 | W.ED.GENAD ---
Discharge Plan Disposition Patient Disposition: Home Condition: Good Discharge Details Clinical Impression: COVID, Conjunctivitis Primary Care Provider: Dory Cavazos ED Provider: Martha Price Home Meds and New Rx's Prescriptions: No Action escitalopram oxalate [Lexapro] 10 mg Tablet 10 mg PO DAILY Discharge Instructions Additional Instructions: As discussed, your exam is most consistent with a viral conjunctivitis. This means that the COVID may be dukes because he feels so congested and have the tearing from the right eye. It does not appear to be bacterial at this time. Please encourage hydration. Tylenol and ibuprofen as needed for discomfort or fevers. You may try Mucinex to help with your congestion. Nasal saline to help flush out your nasal passages. If you develop difficulty breathing, shortness of breath, change in your vision or other new/worsening symptoms seek care urgently once again. Otherwise complete continue to quarantine and follow-up with primary care in 2 weeks. Referrals: Dory Cavazos [Primary Care Provider] - Discharge Data Discharge Date/Time-TO BE ENTERED AT DEPARTURE: 06/04/22 10:18 Medical Decision Making Patient is a pleasant 27 year old female presenting with c/c of right eye irritation. She states that she began having cough, congestion, runny nose about 5 days ago. COVID test her self 2 days ago and found to be positive. At the same day she tested her self she also began noting some clear watery discharge from the right eye. Notes that she can have some crusting particular in the morning. Denies any visual change. No headaches. States that the eye has been slightly sore and itchy. Patient does not wear contacts. On exam, patient appears nontoxic. She has mild injection of the right eye and some tearing. No purulent discharge. Remaining eye exam is normal. No other abnormality noted on the ENT exam. Lungs are clear. Advised that her history and exam is most consistent with a viral conjunctivitis. I do not see indication for antibiotics at this time. Encourage hydration and supportive measures. Return precautions were discussed. Encourage warm compresses over the right eye. She does have fake eyelashes and we did discuss their potential removal. We discussed quarantine. All of her questions and concerns were addressed and she is in agreement this plan. HPI General Date/Time Provider Initiated Documentation: 06/04/22 09:43. Limitations to Documentation: no limitations. Information obtained by: patient and RN notes reviewed. History of Present Illness 27 year old F presents to the emergency department with the chief complaint of known COVID +, right eye discharge, irritation, described as moderate, with intensity rated at 5. Quality is described as burning (itching, irritated), and is localized to the eyes. Patient started experiencing this day(s) and it has been constant (crusting in the AM). Related Data Home Medications Medication Instructions Recorded Confirmed escitalopram oxalate 10 mg tablet 10 mg PO DAILY 02/16/20 01/28/22 (Lexapro) Allergies Allergy/AdvReac Type Severity Reaction Status Date / Time sulfamethoxazole AdvReac Severe Skin Rash Unverified 06/04/22 09:42 [From Bactrim] trimethoprim [From Bactrim] AdvReac Severe Skin Rash Unverified 06/04/22 09:42 amitriptyline AdvReac suicidal Verified 06/04/22 09:42 ideation General Stated Complaint: EyeProblem ANA ROSA: 5 Review of Systems Constitutional Constitutional: Reports as per HPI and Denies headache(s) Eyes Eyes: Reports as per HPI ENT Ears, Nose, Mouth, and Throat: Denies headache(s) Cardiovascular Cardiovascular: Reports as per HPI and Denies chest pain Respiratory Respiratory: Denies cough Integumentary/Breasts Skin/Breast: Reports as per HPI, Denies rash, Denies skin pain and Denies skin swelling Neurologic Neurologic: Denies headache(s) and Denies radicular pain PFSH All Active Problems (Updated 06/04/22 @ 09:59 by SHELBIE Motley) COVID (Acute) Conjunctivitis (Acute) ETOH abuse (Chronic) Benzodiazepine abuse (Acute) Medical History Anxiety Surgical History No significant past surgical history Social History Smoking/Tobacco Use Status: Never Smoking risk assessment performed?: Yes Alcohol Intake: current Alcohol Intake frequency: a few times a week Alcohol type: hard liquor Drug use: Occasionally Substance use type: marijuana Do you feel safe at home: Yes Do you feel safe in your relationship?: Yes Exam Const General: cooperative, healthy appearing, comfortable, no acute distress, well developed and well groomed Nutritional Appearance: average body habitus and well nourished Orientation: alert, awake and oriented x3 [facility] Head: normal to inspection, normocephalic and atraumatic Ears: hearing grossly normal bilaterally and external ears normal General nose exam: external nose normal and nares normal Face and sinus: normal facial exam and face symmetric Mouth: oral mucosae normal, lip normal and moist mucous membranes Throat: posterior oropharynx normal, tonsils normal and uvula midline Eyes Alignment and Position: alignment normal and position normal Periorbital: periorbital findings normal Eyelids: eyelids normal Conjunctivae: conjunctival abnormality right conjunctival injection (mild) and discharge (tearing, minimal clear discharge) Sclera: sclerae normal Cornea: corneas normal Pupils: PERRL, normal by confrontation and accommodation normal EOM: EOM intact bilaterally Resp Effort & Inspection: normal respiratory effort, able to speak in complete sentences and no respiratory distress Auscultation: clear to auscultation bilaterally Cardio Rate: regular rate Rhythm: regular rhythm Heart Sounds: S1 normal and S2 normal Skin General skin exam: no rashes or lesions noted Neuro General: patient alert, patient awake and patient oriented x3 Cranial Nerves: CN's II-XI intact bilaterally Cognition: normal cognition Speech: speech normal Gait: normal gait Psych Appearance: grossly normal and well kempt Mental Status: mental status grossly normal Speech and Movement: speech and movement normal Course Vital Signs Vital signs: Vital Signs Temperature 37.0 C 06/04/22 09:38 Pulse 97 H 06/04/22 09:38 Respiratory Rate 18 06/04/22 09:38 Blood Pressure 139/93 H 06/04/22 09:38 Pulse Oximetry 96 06/04/22 09:38 Temperature 37.0 C 06/04/22 09:38 Temperature Source Temporal Artery Scan 06/04/22 09:38 Pulse 97 H 06/04/22 09:38 Respiratory Rate 18 06/04/22 09:38 Respiratory Effort Non-Labored 06/04/22 09:43 Blood Pressure 139/93 H 06/04/22 09:38 Blood Pressure Position Sitting 06/04/22 09:38 Pulse Oximetry 96 06/04/22 09:38 Oxygen Delivery Method Room Air 06/04/22 09:38 Oxygen Flow Rate 0 06/04/22 09:38 Pain Level 5 06/04/22 09:38 PAWSS Have you Been Recently Intoxicated or Drunk Within the Last 30 days?: No Have you Ever Experienced Previous Episodes of Alcohol Withdrawal?: No Have you ever Experienced Withdrawal Seizures?: No Have you ever Experienced Delirium Tremens(DT)s?: No Have you ever undergone Alcohol Rehabilitation Treatment (i.e, inpt ot outpatient treatment programs)?: No Have you ever Experienced Blackouts?: No Have you ever Combined Alcohol with other Downers within the last 90 days?: No Have you ever Combined Alcohol with any other Substance of Abuse during the last 90 days?: No Positive Blood Alcohol level on Presentation? [PCS.BAL]: No Evidence of Increased Autonomic Activity (i.e. HR>120, tremor, sweating, agitation, nausea)?: No Result: 0
== END 2022-06-04 10:18 | disposition home or self-care (01) ==
PROVIDERS: Emergency Provider Physician Assistant; PCP Nurse Practitioner Family
DX: U07.1 COVID-19 (principal); H10.31 Unspecified acute conjunctivitis, right eye
CPT/HCPCS: 99283

== ENCOUNTER 2023-05-26 20:58 | Outpatient (REF) | payer MEDICAID, SELFPAY ==
[2023-05-28 13:31] LABS: Chlamydia Result Negative (Negative); GC Result Negative (Negative)
== END 2023-05-26 20:59 | disposition home or self-care (01) ==
LOC: LBN 20:58
PROVIDERS: Visit Provider Nurse Practitioner Family
DX: N76.0 Acute vaginitis (principal); N39.0 Urinary tract infection, site not specified
CPT/HCPCS: 87491; 87591; 87480; 87510; 87660

== ENCOUNTER 2023-11-13 10:50 | Outpatient (REF) | payer MEDICAID, SELFPAY ==
[2023-11-13 13:35] LABS: Bilirubin Negative (Negative); Blood Large (Negative); Clarity Clear (Clear); Glucose Negative (Negative); Ketones Negative (Negative); Leukocyte Esterase Negative (Negative); Nitrite Positive (Negative); Urobilinogen 0.2 mg/dL (Up to 0.2); pH 7.5 (5-8)
[2023-11-13 13:47] LABS: Bacteria Few HPF (Negative); C & S Indicated? No; Casts Negative LPF (Negative); Crystals Negative HPF (Negative); Epithelial Cells Moderate HPF (Negative); Mucus Negative (Negative); Other Cells Few Renal (Negative); WBC Negative HPF (0-5)
== END 2023-11-13 10:51 | disposition home or self-care (01) ==
LOC: LBN 10:50
PROVIDERS: Visit Provider Nurse Practitioner Family
DX: R39.9 Unspecified symptoms and signs involving the genitourinary system (principal)
CPT/HCPCS: 81003; 81015

== ENCOUNTER 2024-01-23 18:12 | Outpatient (REF) | payer MEDICAID, SELFPAY | END 2024-01-23 18:13 | disposition home or self-care (01) | LOC: LBN 18:12 | PROVIDERS: Visit Provider Physician Assistant | DX: N39.0 Urinary tract infection, site not specified (principal) | CPT/HCPCS: 87086 ==

== ENCOUNTER 2024-05-12 12:42 | Emergency (ER) | payer MEDICAID, SELFPAY ==
[2024-05-12 12:43] VITALS: BP 113/80; PULSE 116; RESP 14; TEMP 36.6; O2SAT 96
--- NOTE | 2024-05-12 13:00 | DI.RAD_ITS ---
Exam(s) XR FOOT RT COMPLETE EXAM: XR FOOT RT COMPLETE CLINICAL HISTORY: cut foot, ?foreign body. TECHNIQUE: 2D digital imaging was performed. Three views. COMPARISON: No exams were available for comparison FINDINGS: BONES: No acute fracture is present. No bony destructive lesion is seen. JOINTS: No dislocation present. SOFT TISSUE: There is a bandage overlying the heel. No radiopaque foreign body identified. IMPRESSION: No visible foreign body. DATA REPOSITORY: RADIATION DOSE DELIVERED:
--- NOTE | 2024-05-12 13:10 | ED.GENADUL_ITS ---
Discharge Plan Disposition Patient Disposition: Home Condition: Stable Discharge Details Clinical Impression: Puncture wound of right foot Primary Care Provider: Paty Hernandez ED Provider: Chevy Brian Home Meds and New Rx's Prescriptions: Continued semaglutide 2 mg/dose (8 mg/3 mL) pen injector 2 mg subcut QWEEK phenazopyridine [Pyridium] 200 mg tablet 200 mg PO TID PRN (Reason: pain) Qty: 6 0RF escitalopram oxalate [Lexapro] 10 mg Tablet 10 mg PO DAILY Discharge Instructions Additional Instructions: He could have a small piece of glass still in your foot. If you are still in pain in a week I would recommend following with your primary care provider. Return to the emergency department if you decide you want us to probe the area and possibly remove the foreign body, or if you have signs of infection such a spreading redness.. HPI General Mode of arrival: ambulatory . Date/Time Provider Initiated Documentation: 05/12/24 12:49 . Limitations to Documentation: no limitations . Information obtained by: patient . History of Present Illness 29 year old F presents to the emergency department with the chief complaint of strepped on piece of glass, described as moderate, Quality is described as aching, and is localized to the right and lower extremity. Patient reports no radiation. Patient started experiencing this hour(s) (2) and it has been constant. No relieving factors improve symptom(s), No exacerbating factors reported . Patient notes no other symptoms.. Related Data Home Medications ?Medication ?Instructions ?Recorded ?Confirmed escitalopram oxalate 10 mg tablet 10 mg PO DAILY 02/16/20 05/12/24 (Lexapro) semaglutide 2 mg/dose (8 mg/3 mL) 2 mg subcut QWEEK 11/13/23 05/12/24 subcutaneous pen injector phenazopyridine 200 mg tablet 200 mg PO TID PRN pain 6 doses #6 01/23/24 05/12/24 (Pyridium) tabs Previous Rx's ?Medication ?Instructions ?Recorded phenazopyridine 200 mg tablet 200 mg PO TID PRN pain 6 doses #6 01/23/24 (Pyridium) tabs Allergies Allergy/AdvReac Type Severity Reaction Status Date / Time sulfamethoxazole (From AdvReac Severe Skin Rash Unverified 05/12/24 12:48 Bactrim) trimethoprim (From Bactrim) AdvReac Severe Skin Rash Unverified 05/12/24 12:48 amitriptyline AdvReac suicidal Verified 05/12/24 12:48 ideation General Stated Complaint: Laceration ANA ROSA: 4 Review of Systems All systems reviewed & are unremarkable except as noted in HPI and below Constitutional Constitutional: Denies chills, Denies fever(s) and Denies weakness Cardiovascular Cardiovascular: Denies chest pain and Denies dyspnea Respiratory Respiratory: Denies cough and Denies dyspnea Gastrointestinal Gastrointestinal: Denies abdominal pain, Denies nausea and Denies vomiting Neurologic Neurologic: Denies weakness Exam Const General: no acute distress Orientation: alert HENMT Head: normal to inspection Ears: external ears normal General nose exam: external nose normal Mouth: moist mucous membranes Eyes General: appearance normal, both eyes and all related structures Neck Neck: normal visual inspection Resp Effort & Inspection: normal respiratory effort and able to speak in complete sentences Cardio Rate: regular rate Neuro General: patient alert and patient oriented x3 Extrem General: full ROM and capillary refill normal Psych Mental Status: mental status grossly normal Course Vital Signs Vital signs: Vital Signs Temperature 36.6 C 05/12/24 12:43 Pulse 116 H 05/12/24 12:43 Respiratory Rate 14 05/12/24 12:43 Blood Pressure 113/80 05/12/24 12:43 Pulse Oximetry 96 05/12/24 12:43 Temperature 36.6 C 05/12/24 12:43 Temperature Source Oral 05/12/24 12:43 Pulse 116 H 05/12/24 12:43 Respiratory Rate 14 05/12/24 12:43 Respiratory Effort Normal 05/12/24 12:49 Blood Pressure 113/80 05/12/24 12:43 Blood Pressure Position Sitting 05/12/24 12:43 Pulse Oximetry 96 05/12/24 12:43 Oxygen Delivery Method Room Air 05/12/24 12:43 Oxygen Flow Rate 0 05/12/24 12:43 Pain Level 7 05/12/24 12:43 Medical Decision Making 29-year-old female comes in with complaints of stepping on a piece of glass earlier today. Patient states a piece of glass was about 3 to 4 inches in length it went into her right plantar foot underneath the calcaneus area. She says she removed it and believes that piece of glass was fully intact. She has a small half a millimeter puncture wound on the bottom of her foot in the above- stated area, no bleeding, full range of motion of the foot intact sensation and pulses. Suspect puncture wound, will obtain x-rays to evaluate for possible foreign body. I do not see a visible foreign body on the x-ray, I did do an ultrasound at bedside and there seems to be a very small foreign body at the site of her puncture wound. It seems superficial to the surface. I recommended trying to remove it. I discussed putting a numbing medicine that helped alleviate the pain from this. Patient has medical decision-making capacity and was informed of the risks of leaving a foreign body in her foot including continued pain and potential for infection requiring more of a surgical procedure to to treat, despite this she still declined to let me try to remove this. She understands s he can return if she changes her mind. She will follow-up with her PCP and return precautions given Differential Diagnosis Differential Diagnosis: Laceration, foreign body Quality:SDOH Health Related Social Needs: No Data to Display PFSH All Active Problems (Updated 05/12/24 @ 13:45 by Chevy Brian MD) Puncture wound of right foot (Acute) COVID (Acute) ETOH abuse (Chronic) Benzodiazepine abuse (Acute) Medical History Anxiety Surgical History No significant past surgical history Social History Smoking/Tobacco Use Status: Never Smoking risk assessment performed?: Yes Alcohol Intake: current Alcohol Intake frequency: a few times a week Alcohol type: hard liquor Drug use: Occasionally Substance use type: marijuana Do you feel safe at home: Yes Do you feel safe in your relationship?: Yes
[2024-05-12] MEDS: Lidocaine/Epinephri/Tetracaine Topical Gel 3 ML TP (13:13)
--- NOTE | 2024-05-12 14:24 | DI.VRAD_ITS ---
PROCEDURE INFORMATION: Exam: XR Right Foot Exam date and time: 05/12/2024 1:19 PM Age: 29 years old Clinical indication: Injury or trauma; Other: Stepped on glas heal of right foot; Laceration; Heel; Foreign body involvement not specified; Injury details: ? F/b TECHNIQUE: Imaging protocol: Radiologic exam of the right foot. Views: 3 or more views. COMPARISON: No relevant prior studies available. FINDINGS: Bones/joints: There is no evidence of acute fracture.There is no evidence of malalignment or dislocation. Soft tissues: Normal. No foreign body identified IMPRESSION: There is no evidence of acute fracture.There is no evidence of malalignment or dislocation. No foreign body identified Dictated and Authenticated by: Sergey Trejo MD. Ordering:VIKI Reece MD
== END 2024-05-12 14:04 | disposition home or self-care (01) ==
PROVIDERS: Emergency Provider Emergency Medicine; PCP Nurse Practitioner Family
DX: S91.331A Puncture wound without foreign body, right foot, initial encounter (principal); W25.XXXA Contact with sharp glass, initial encounter; Y93.89 Activity, other specified; Y92.018 Other place in single-family (private) house as the place of occurrence of the external cause
CPT/HCPCS: 99284; 73630; 99283